=== PATIENT | male | born 1985 | race Caucasian/White ===

== ENCOUNTER 2017-05-24 13:03 | Emergency (ER) | payer OTHER ==
[2017-05-24 13:09] VITALS: RESP 16
[2017-05-24] MEDS ORDERED: BACITRACIN OINTMENT 1 PACKET TP ONE (13:48)
--- NOTE | 2017-05-24 13:50 | EDPHY ---
H & P Stated Complaint: LAC TO L FOREARM HPI/ROS: Chief complaint: Left forearm laceration History of present illness: This is a 32-year-old male who presents to the emergency department for left forearm laceration. 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 Minimal pain. Bleeding that has been controlled with application of a dressing. No report of abnormal coolness or paresthesias in the arm. No difficulty moving the arm. No other wounds. Tetanus is up-to-date. - Personal History Current Tetanus/Diphtheria Vaccine: Yes - Medical/Surgical History Hx Asthma: No Hx Chronic Respiratory Disease: No Hx Diabetes: No Hx Cardiac Disease: No Hx Renal Disease: No Hx Cirrhosis: No Hx Alcoholism: No Hx HIV/AIDS: No Hx Splenectomy or Spleen Trauma: No Other PMH: DENIES - Social History Smoking Status: Never smoked - Physical Exam Exam: General: Alert, nontoxic Skin: 4 cm laceration of the mid aspect of the left forearm. Exploration does not reveal deep structure injury or foreign body contamination. Musculoskeletal: Patient is moving the elbow, wrist and digits in all michael without difficulty. Vascular: Radial pulses 2+. Capillary refill brisk in the left arm. Neurologic: Sensation intact throughout the left upper extremity. Constitutional: Initial Vital Signs Temperature (C) 36.5 C 05/24/17 13:07 Heart Rate 62 05/24/17 13:07 Respiratory Rate 16 05/24/17 13:07 Blood Pressure 100/52 L 05/24/17 13:07 O2 Sat (%) 99 05/24/17 13:07 O2 Delivery Mode Room Air Allergies/Adverse Reactions: amoxicillin [Amoxicillin] Allergy (Mild, Verified 05/24/17 13:05) Home Medications: Medication Instructions Recorded NK [No Known Home Meds] 05/24/17 Medical Decision Making Procedures: Procedure: Laceration repair. Verbal consent was obtained from the patient. The 4 cm laceration on the left forearm was anesthetized in the usual fashion. The wound was irrigated, draped and explored to its base with a gloved finger. There were no deep structures involved. No tendon injury was identified. The wound was repaired with 4 0 Ethilon, simple interrupted sutures. The wound repair was simple. The procedure was performed by myself. ED Course/Re-evaluation: Patient seen under the supervision of my secondary supervising physician Dr. Osvaldo Adkins. Patient presents to the emergency department for left forearm laceration. The arm is neurovascularly intact. He has good musculoskeletal control. The wound is cleaned, repaired and dressed. His tetanus is already up-to-date. He is discharged home. Home care is discussed. Return precautions are given. He is to follow up with worker's compensation for recheck. Differential Diagnosis: Included but not limited to laceration, deep structure injury, foreign body contamination Departure - Departure Disposition: Home, Routine, Self-Care Clinical Impression: Laceration of arm Qualifiers: Encounter type: initial encounter Laterality: left Qualified Code(s): S41.112A - Laceration without foreign body of left upper arm, initial encounter Condition: Good Instructions: Care For Your Stitches (ED), Laceration (ED), Acute Wounds (ED) Additional Instructions: Follow-up with worker's compensation or a primary care doctor for recheck Stitches to be removed in 10-12 days If symptoms worsen or new symptoms develop return to the emergency room for recheck Referrals: Marisol Tao MD [Primary Care Provider] - As per Instructions
[2017-05-24 13:53] VITALS: BP 100/72; PULSE 65; TEMP 98.4; O2SAT 95
== END 2017-05-24 13:54 | disposition home or self-care (01) ==
PROC: 0HQEXZZ Repair Left Lower Arm Skin, External Approach (ICD-10-PCS; principal; 2017-05-24)
DX: S41.112A Laceration without foreign body of left upper arm, initial encounter (principal); W45.8XXA Other foreign body or object entering through skin, initial encounter